=== PATIENT | female | born 1995 | race African-American/Black ===

== ENCOUNTER 2016-12-31 12:09 | Emergency (ER) | payer MEDICAID ==
[~2016-12-31] VITALS: Ht 170.2 cm; Wt 63.0 kg
[2016-12-31 12:55] VITALS: BP 121/51
== END 2016-12-31 15:05 | disposition left against medical advice (07) ==
LOC: ER 12:35
DX: T76.21XA Adult sexual abuse, suspected, initial encounter (principal); R10.2 Pelvic and perineal pain; R30.0 Dysuria; Y93.89 Activity, other specified; Y92.099 Unspecified place in other non-institutional residence as the place of occurrence of the external cause
CPT/HCPCS: 99283

== ENCOUNTER 2017-05-27 14:02 | Emergency (ER) | payer MEDICAID ==
[~2017-05-27] VITALS: Ht 167.6 cm; Wt 60.0 kg
[2017-05-27] MEDS ORDERED: IBUPROFEN 600MG TABLET PO STA (15:38)
[2017-05-27 16:09] LABS: CLARITY URINE CLOUDY (CLEAR); COLOR URINE YELLOW (YELLOW); GLUCOSE URINE NEGATIVE (NEGATIVE); KETONES URINE NEGATIVE (NEGATIVE); LEUKOCYTE ESTERASE URINE TRACE (NEGATIVE); NITRITE URINE NEGATIVE (NEGATIVE); OCCULT BLOOD URINE 3+ (NEGATIVE); PROTEIN URINE TRACE (NEGATIVE); SPECIFIC GRAVITY URINE 1.023 (1.005-1.030)
[2017-05-27 16:31] VITALS: BP 110/80
[2017-05-27 16:32] LABS: HCG SCREEN NEGATIVE
[2017-05-27] MEDS ORDERED: ACETAMINOPHEN 325MG TABLET PO ONE (16:45)
== END 2017-05-27 16:51 | disposition home or self-care (01) ==
LOC: ER 16:18
DX: N39.0 Urinary tract infection, site not specified (principal); F17.210 Nicotine dependence, cigarettes, uncomplicated; Z98.890 Other specified postprocedural states
CPT/HCPCS: 81001; 84703; 99283; 99284

== ENCOUNTER 2019-06-01 11:32 | Emergency (ER) | payer MEDICAID ==
[~2019-06-01] VITALS: Ht 172.7 cm; Wt 55.0 kg
[2019-06-01] MEDS ORDERED: METHYLPREDNISOLONE SOD SUCC 125 MG/2 ML VIAL IV STA (11:47)
[2019-06-01] MEDS ORDERED: ALBUTEROL (0.083%) 2.5MG/3ML NEB HHN STA (11:47)
[2019-06-01] MEDS ORDERED: IPRATROPIUM BROMIDE (0.02%) 0.5MG/2.5ML NEB HHN STA (11:47)
[2019-06-01] MEDS ORDERED: SODIUM CHLORIDE 0.9% 1,000 ML IV ONE (11:47)
[2019-06-01 12:09] LABS: BASOPHILS % 0.3 % (0.0-2.0); EOSINOPHILS % 0.9 % (0.0-5.0); HEMATOCRIT. 39.3 % (36.0-48.0); HEMOGLOBIN. 14.1 g/dL (12.0-16.0); LYMPHOCYTES % 45.4 % (20.0-50.0); MEAN CORPUSCULAR HEMOGLOBIN 32.9 pg (28.0-32.0); MEAN CORPUSCULAR VOLUME 91.9 fL (81.0-99.0); MEAN PLATELET VOLUME 8.3 fl (7.4-10.4); MONOCYTES % 9.3 % (2.0-8.0); NEUTROPHILS % 44.1 % (40.0-76.0); PLATELET 270 x1000/uL (130-400); RED BLOOD CELL COUNT 4.28 mill/uL (4.2-5.4); RED CELL DISTRIBUTION WIDTH 13.2 % (11.6-14.6)
[2019-06-01 12:16] LABS: CHLORIDE 108 mEq/L (98-107); HCG SCREEN NEGATIVE
[2019-06-01] MEDS ORDERED: POTASSIUM CHLORIDE 20MEQ TABLET SR PO ONE (13:15)
[2019-06-01 14:54] VITALS: BP 96/54
== END 2019-06-01 14:55 | disposition home or self-care (01) ==
LOC: ER 11:32
DX: J45.901 Unspecified asthma with (acute) exacerbation (principal); R06.4 Hyperventilation; R20.2 Paresthesia of skin
CPT/HCPCS: 36415; 71045; 80053; 84703; 85025; 94640; 96374; 99284; J2930; J7030; J7611; Z7610

== ENCOUNTER 2019-12-04 17:38 | Emergency (ER) | payer MEDICAID ==
[~2019-12-04] VITALS: Ht 167.6 cm; Wt 73.0 kg
[2019-12-04 23:03] VITALS: BP 101/48
== END 2019-12-04 23:32 | disposition left against medical advice (07) ==
LOC: ER 17:38
DX: R10.9 Unspecified abdominal pain (principal); Z53.21 Procedure and treatment not carried out due to patient leaving prior to being seen by health care provider